=== PATIENT | male | born 1985 | race Caucasian/White ===

== ENCOUNTER 2017-03-03 10:58 | Emergency (ER) | payer MEDICAID ==
[~2017-03-03] VITALS: Ht 190.5 cm; Wt 137.0 kg
[2017-03-03 11:00] VITALS: BP 169/11; PULSE 90; RESP 24; TEMP 98.1; O2SAT 95
[2017-03-03 11:03] VITALS: BP 169/111; PULSE 90; RESP 24; TEMP 98.1; O2SAT 95
[2017-03-03 11:04] VITALS: BP_SYST 166; BP_DIAS 105; BP_DIAS 55; PULSE 91
[2017-03-03] MEDS ORDERED: SODIUM CHLOR 0.9% 1000 ML INJ 1,000 ML IV SCH (11:24)
--- NOTE | 2017-03-03 11:27 | PD ---
HPI Chief Complaint: Chest Pain Time Seen by Provider: 11:19 Travel History International Travel<30 days: No Contact w/Intl Traveler<30days: No Traveled to known affect area: No History of Present Illness HPI This is a 31-year-old male who presents to the emergency department with chest discomfort that started yesterday, in the center of his chest, nonradiating, associated with some shortness of breath, palpitations, diaphoresis and nausea. He does say his pain is worse when he exerts himself and improved with rest. He says he gets sweaty with the pain. He also reports that for the past several weeks he's been vomiting after he eats. He does drink 2-3 alcoholic beverages every day. He smokes cigarettes. His mom of a heart attack at 57. He does have a history of hypertension but denies hyperlipidemia or diabetes. PFS Past Medical History Narrative Medical htn Cardiovascular Problems: Yes (htn) Social History Alcohol Use: Yes (2-3 drinks daily) Tobacco Use: No Allergies-Medications (Allergen,Severity, Reaction): Coded Allergies: No Known Allergies (Unverified , 03/03/17) Reported Meds & Prescriptions Reported Meds & Active Scripts Active Reported Xanax (Alprazolam) 0.5 Mg Tab 0.5 Mg PO Q8H PRN Lortab (Hydrocodone-Acetaminophen) 10-325 Mg Tab 1 Tab PO DAILY PRN Review of Systems Except as stated in HPI: all other systems reviewed are Neg Physical Exam Narrative GENERAL:Well appearing, no acute distress SKIN: Focused skin assessment warm and dry. HEAD: Atraumatic. Normocephalic. EYES: Pupils equal and round. No injection or drainage. ENT: Moist mucous membranes NECK: Trachea midline. CARDIOVASCULAR: Regular rate and rhythm. No murmur appreciated. RESPIRATORY: Clear to auscultation. Breath sounds equal bilaterally. GASTROINTESTINAL: Abdomen soft, tender to palpation in the epigastrium and left upper quadrant with no rebound or guarding. MUSCULOSKELETAL: No obvious deformities. NEUROLOGICAL: Awake and alert. No obvious cranial nerve deficits. Moving all extremities. PSYCHIATRIC: Appropriate mood and affect; insight and judgment normal. Data Data Last Documented VS Vital Signs Date Time Temp Pulse Resp B/P Pulse Ox O2 Delivery O2 Flow Rate FiO2 03/03/17 13:05 73 17 148/91 97 03/03/17 11:32 Room Air 4/18/17 11:03 98.1 Orders Electrocardiogram (03/03/17 11:10) Complete Blood Count With Diff (03/03/17 11:24) Comprehensive Metabolic Panel (03/03/17 11:24) Lipase (03/03/17 11:24) Urinalysis - C+S If Indicated (03/03/17 11:24) Iv Access Insert/Monitor (03/03/17 11:24) Ecg Monitoring (03/03/17 11:24) Oximetry (03/03/17 11:24) Sodium Chlor 0.9% 1000 Ml Inj (Ns 1000 M (03/03/17 11:24) Sodium Chloride 0.9% Flush (Ns Flush) (03/03/17 11:30) Al-Mag Hy-Si 40-40-4 Mg/Ml Liq (Mag-Al P (03/03/17 11:30) Lidocaine 2% Viscous (Xylocaine 2% Visco (03/03/17 11:30) Troponin I (03/03/17 11:24) Chest, Single Ap (03/03/17 ) Us Abdomen Gallbladder (03/03/17 ) Ed Poc Ultrasound (03/03/17 ) Troponin I (03/03/17 15:30) Labs Laboratory Tests Test 03/03/17 03/03/17 11:45 12:25 White Blood Count 15.3 TH/MM3 Red Blood Count 4.24 MIL/MM3 Hemoglobin 14.3 GM/DL Hematocrit 41.0 % Mean Corpuscular Volume 96.6 FL Mean Corpuscular Hemoglobin 33.7 PG Mean Corpuscular Hemoglobin 34.8 % Concent Red Cell Distribution Width 14.5 % Platelet Count 334 TH/MM3 Mean Platelet Volume 7.3 FL Neutrophils (%) (Auto) 67.8 % Lymphocytes (%) (Auto) 19.8 % Monocytes (%) (Auto) 10.6 % Eosinophils (%) (Auto) 1.3 % Basophils (%) (Auto) 0.5 % Neutrophils # (Auto) 10.4 TH/MM3 Lymphocytes # (Auto) 3.0 TH/MM3 Monocytes # (Auto) 1.6 TH/MM3 Eosinophils # (Auto) 0.2 TH/MM3 Basophils # (Auto) 0.1 TH/MM3 CBC Comment DIFF FINAL Differential Comment Sodium Level 140 MEQ/L Potassium Level 4.2 MEQ/L Chloride Level 105 MEQ/L Carbon Dioxide Level 26.5 MEQ/L Anion Gap 9 MEQ/L Blood Urea Nitrogen 5 MG/DL Creatinine 0.99 MG/DL Estimat Glomerular Filtration 88 ML/MIN Rate Random Glucose 86 MG/DL Calcium Level 9.2 MG/DL Total Bilirubin 0.8 MG/DL Aspartate Amino Transf 95 U/L (AST/SGOT) Alanine Aminotransferase 82 U/L (ALT/SGPT) Alkaline Phosphatase 101 U/L Troponin I LESS THAN 0.02 NG/ML Total Protein 7.6 GM/DL Albumin 3.5 GM/DL Lipase 120 U/L Urine Color YELLOW Urine Turbidity CLEAR Urine pH 6.5 Urine Specific [place] 1.013 Urine Protein NEG mg/dL Urine Glucose (UA) NEG mg/dL Urine Ketones NEG mg/dL Urine Occult Blood NEG Urine Nitrite NEG Urine Bilirubin NEG Urine Urobilinogen LESS THAN 2.0 MG/DL Urine Leukocyte Esterase NEG Urine RBC LESS THAN 1 /hpf Urine WBC LESS THAN 1 /hpf Urine Mucus FEW /lpf Microscopic Urinalysis Comment CULT NOT INDICATED MDM Medical Decision Making Medical Screen Exam Complete: Yes Emergency Medical Condition: Yes Interpretation(s) Afebrile, no tachycardia, hypertensive Leukocytosis Mild transaminitis Troponin is normal Lipase is normal Urinalysis: No infection Right upper quadrant ultrasound: Distended gallbladder with no stones, per cholecystic fluid or thickening Differential Diagnosis GERD, acute coronary syndrome, pancreatitis, gastritis, cholecystitis, cholelithiasis Narrative Course This is a 31-year-old male who presents to the emergency department reporting chest pain. On exam he is tender in the epigastrium. He was placed on a monitor and an IV was established. He was afebrile with no tachycardia. He did have a leukocytosis. Labs demonstrate mild transaminitis which I suspect is secondary to daily alcohol use. A right upper quadrant ultrasound was obtained given his leukocytosis and epigastric pain which was reassuring. I suspect his pain is related to alcoholic gastritis. He does have some risk factors for acute coronary syndrome. He has some family history, hypertension and smoking history. His EKG was reassuring. I did discuss with him that I thought his likelihood of having acute coronary syndrome was very low. He would prefer to follow up with his primary care physician and stay in the hospital for a stress test which I think is reasonable. Procedures Procedure Narrative [id number] ultrasound: Gallbladder was visualized and appears to be normal thickness but I had difficulty visualizing the neck of the gallbladder and was unable to visualize the common bile duct so formal ultrasound was obtained. Diagnosis Primary Impression: Gastritis Qualified Code: K29.20 - Acute alcoholic gastritis without hemorrhage Patient Instructions: General Instructions Additional Instructions: If you develop severe or worsening abdominal pain, fever>100.4, persistent vomiting or inability to eat or drink return to the emergency department immediately. Follow up with your primary care physician in 1-2 days for a check-up and possible stress test Med/Other Pt SpecificInfo: Prescription(s) given Scripts Ranitidine (Zantac)150 Mg [id number] Mg PO BID #60 TAB Ref 0 Prov:Luna Agosto MD 03/03/17 Disposition: 01 DISCHARGE HOME Condition: Stable Luna Agosto MD Mar 03, 2017 11:27
[2017-03-03] MEDS ORDERED: ALUMINUM/MAGNESIUM/SIMETH 30 ML CUP PO ONE (11:30)
[2017-03-03] MEDS ORDERED: SODIUM CHLORIDE 0.9% FLUSH 10 ML FLUSH IV FLUSH PRN (11:30)
[2017-03-03] MEDS ORDERED: LIDOCAINE VISCOUS 2% SOLN 15 ML UDC PO ONE (11:30)
[2017-03-03 11:32] VITALS: O2SAT 97
[2017-03-03] MEDS ORDERED: ALPR.5 PO (11:40)
[2017-03-03] MEDS ORDERED: HYDR-3535 PO (11:40)
[2017-03-03 11:57] LABS: AUTOMATED NEUTROPHIL # 10.4 TH/MM3 (1.8-7.7); BASOPHIL # 0.1 TH/MM3 (0-0.2); BASOPHIL % 0.5 % (0.0-2.0); EOSINOPHIL # 0.2 TH/MM3 (0-0.4); EOSINOPHIL % 1.3 % (0.0-4.0); HEMO FLAGS DIFF FINAL; LYMPH % 19.8 % (9.0-44.0); MEAN CELL VOLUME 96.6 FL (80.0-100.0); MEAN CORPUSCULAR HEMOGLOBIN 33.7 PG (27.0-34.0); MEAN CORPUSCULAR HGB CONC 34.8 % (32.0-36.0); MONO % 10.6 % (0.0-8.0); NEUT % 67.8 % (16.0-70.0); PLATELET COUNT 334 TH/MM3 (150-450); RED BLOOD COUNT 4.24 MIL/MM3 (4.50-5.90); RED CELL DISTRIBUTION WIDTH 14.5 % (11.6-17.2); WHITE BLOOD COUNT 15.3 TH/MM3 (4.0-11.0)
[2017-03-03 12:14] LABS: ANION GAP 9 MEQ/L (5-15); AST (GOT) 95 U/L (15-37); BICARBONATE 26.5 MEQ/L (21.0-32.0); BLOOD UREA NITROGEN 5 MG/DL (7-18); CHLORIDE 105 MEQ/L (98-107); GLOMERULAR FILTRATION RATE 88 ML/MIN (>89); POTASSIUM 4.2 MEQ/L (3.5-5.1); SODIUM (NA) 140 MEQ/L (136-145)
[2017-03-03 12:20] LABS: ALKALINE PHOSPHATASE 101 U/L (45-117); ALT (GPT) 82 U/L (12-78); TOTAL BILIRUBIN ADULT 0.8 MG/DL (0.2-1.0)
--- NOTE | 2017-03-03 12:38 | RADRPT ---
EXAM DATE/TIME: 03/03/2017 11:28 [facility] COMPARISON: No previous studies available for comparison. INDICATIONS : Short of breath. MEDICAL HISTORY : None. SURGICAL HISTORY : None. ENCOUNTER: Initial ACUITY: 1 day PAIN SCORE: 3/10 LOCATION: Bilateral chest FINDINGS: A single view of the chest demonstrates the lungs to be symmetrically aerated without evidence of mas s, infiltrate or effusion. The cardiomediastinal contours are unremarkable. Osseous structures are intact. CONCLUSION: The lungs are clear. Aquiles Cheung MD on March 03, 2017 at 12:36 Board Certified Radiologist. This report was verified electronically.
[2017-03-03 12:54] LABS: BLOOD, URINE NEG (NEG); COMMENT (UR) CULT NOT INDICATED; CULTURE IF INDICATED CULT NOT INDICATED; GLUCOSE,URINE NEG (NEG); KETONE, URINE NEG (NEG); MUCUS URINE FEW /lpf (OCC); NITRITE,URINE NEG (NEG); PH, URINE 6.5 (5.0-8.5); URINE COLOR YELLOW (YELLW/STRAW)
[2017-03-03 13:05] VITALS: BP 148/91; PULSE 73; RESP 17; O2SAT 97
--- NOTE | 2017-03-03 15:25 | RADRPT ---
EXAM DATE/TIME: 03/03/2017 13:43 [facility] COMPARISON: No previous studies available for comparison. INDICATIONS : Right upper quadrant pain. MEDICAL HISTORY : Hypertension. SURGICAL HISTORY : Splenectomy. Tumor removed fron sinus. ENCOUNTER: Initial ACUITY: 2 days PAIN SCORE: 3/10 LOCATION: Right upper quadrant MEASUREMENTS: LIVER: 20.3 cm length COMMON DUCT: 6 mm RIGHT KIDNEY: 14.4 x 7.5 x 6.5 cm FINDINGS: LIVER: The liver is enlarged and demonstrates diffuse fatty infiltration. No focal hepatic mass is noted. No biliary ductal dilatation is noted. There is hepatopetal flow within the portal vein. COMMON DUCT: No intraluminal mass or stone visualized. GALLBLADDER: The gallbladder is distended. Contains no stones, demonstrates no wall thickening or pericholecystic fluid. PANCREAS: There is poor visualization of pancreas due to shadowing bowel gas. RIGHT KIDNEY: No evidence of hydronephrosis, stone, or mass. CONCLUSION: 1. Enlarged fatty liver. 2. Distended gallbladder without wall thickening, pericholecystic fluid, cholelithiasis or sonographi c Gagnon's sign. Parth Aguilera MD on March 03, 2017 at 15:21 Board Certified Radiologist. This report was verified electronically.
[2017-03-03] MEDS ORDERED: ZANT150T2 PO (15:35)
--- NOTE | 2017-03-03 23:57 | EKG ---
Date Performed: 03/03/2017 Time Performed: 11:13:49 PTAGE: 31 years EKG: Sinus rhythm MODERATE VOLTAGE CRITERIA FOR LVH, CONSIDER NORMAL VARIANT BORDERLINE ECG NO PREVIOUS TRACING DOCTOR: Ihsan Kitchen Interpretating Date/Time 03/03/2017 23:57:18
== END 2017-03-03 16:07 | disposition home or self-care (01) ==
LOC: NEPD 10:58
DX: K29.20 Alcoholic gastritis without bleeding (principal); F17.210 Nicotine dependence, cigarettes, uncomplicated
CPT/HCPCS: 71010; 76705; 80053; 81001; 83690; 84484; 85025; 93005; 96360; 99285; J7030

== ENCOUNTER 2017-06-03 14:38 | Inpatient (IN) | payer MEDICAID ==
[~2017-06-03] VITALS: Ht 190.5 cm; Wt 129.5 kg
[~2017-06-03 14:38] MED LIST: ALPR.5 PO; HYDR-3535 PO; ZANT150T2 PO
[2017-06-03 14:42] VITALS: BP 173/103; PULSE 102; RESP 20; TEMP 97.8; O2SAT 98
[2017-06-03] MEDS ORDERED: SODIUM CHLOR 0.9% 1000 ML INJ 1,000 ML IV SCH (15:16)
[2017-06-03] MEDS ORDERED: FAMOTIDINE 20 MG/2 ML VIAL IV PUSH ONE (15:30)
[2017-06-03] MEDS ORDERED: MORPHINE SULFATE 4 MG/ML INJ IV PUSH ONE ×2 (15:30→19:15)
[2017-06-03] MEDS ORDERED: ONDANSETRON HCL 4 MG/2 ML VIAL IVP ONE (15:30)
[2017-06-03] MEDS ORDERED: SODIUM CHLORIDE 0.9% FLUSH 10 ML FLUSH IV FLUSH PRN (15:30)
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
[2017-06-03 15:54] LABS: AUTOMATED NEUTROPHIL # 13.2 TH/MM3 (1.8-7.7); BASOPHIL % 0.3 % (0.0-2.0); EOSINOPHIL # 0.2 TH/MM3 (0-0.4); EOSINOPHIL % 0.9 % (0.0-4.0); HEMATOCRIT 48.5 % (39.0-51.0); HEMO FLAGS DIFF FINAL; LYMPH % 18.2 % (9.0-44.0); LYMPHOCYTE # 3.4 TH/MM3 (1.0-4.8); MEAN CELL VOLUME 100.6 FL (80.0-100.0); MEAN CORPUSCULAR HEMOGLOBIN 35.4 PG (27.0-34.0); MEAN CORPUSCULAR HGB CONC 35.2 % (32.0-36.0); MONO % 10.1 % (0.0-8.0); NEUT % 70.5 % (16.0-70.0); PLATELET COUNT 419 TH/MM3 (150-450); RED BLOOD COUNT 4.82 MIL/MM3 (4.50-5.90); RED CELL DISTRIBUTION WIDTH 13.7 % (11.6-17.2); WHITE BLOOD COUNT 18.8 TH/MM3 (4.0-11.0)
[2017-06-03] MEDS ORDERED: OMEP40CA2 PO (16:26)
[2017-06-03 16:28] LABS: ALKALINE PHOSPHATASE 106 U/L (45-117); ALT (GPT) 65 U/L (12-78); ANION GAP 7 MEQ/L (5-15); AST (GOT) 47 U/L (15-37); BICARBONATE 29.7 MEQ/L (21.0-32.0); BLOOD UREA NITROGEN 11 MG/DL (7-18); CHLORIDE 97 MEQ/L (98-107); GLOMERULAR FILTRATION RATE 88 ML/MIN (>89); POTASSIUM 3.5 MEQ/L (3.5-5.1); SODIUM (NA) 134 MEQ/L (136-145); TOTAL BILIRUBIN ADULT 1.2 MG/DL (0.2-1.0)
[2017-06-03] MEDS ORDERED: IOHEXOL 350 MG/ML 10 ML VIAL (for RAD DIAG) IV ONE (17:30)
[2017-06-03 17:31] VITALS: BP 142/86; PULSE 86; RESP 17; O2SAT 99
--- NOTE | 2017-06-03 17:38 | RADRPT ---
EXAM DATE/TIME: 06/03/2017 17:21 [facility] COMPARISON: No previous studies available for comparison. INDICATIONS : Right upper lower qaudrant pain. Elevated WBC. IV CONTRAST: 95 cc Omnipaque 350 (iohexol) IV ORAL CONTRAST: No oral contrast ingested. RADIATION DOSE: 19.79 CTDIvol (mGy) ; Patient body habitus MEDICAL HISTORY : Cardiovascular disease. Hypertension. SURGICAL HISTORY : Splenectomy. ENCOUNTER: Initial ACUITY: 1 day PAIN SCALE: 7/10 LOCATION: Right upper quadrant lower qaudrant TECHNIQUE: Volumetric scanning of the abdomen and pelvis was performed. Using automated exposure control and ad justment of the mA and/or kV according to patient size, radiation dose was kept as low as reasonably achievable to obtain optimal diagnostic quality images. DICOM format image data is available electro nically for review and comparison. FINDINGS: LOWER LUNGS: Mild atelectasis at the lung bases. LIVER: Diffusely decreased hepatic density without evidence for intrahepatic ductal dilatation or focal mass . Gallbladder is mildly distended but otherwise unremarkable by CT. SPLEEN: Postsurgical features of prior splenectomy. Small amount of enhancing soft tissue in the splenic bed likely reflects splenic remnant/splenule. PANCREAS: There is peripancreatic inflammatory stranding predominantly near the pancreatic head. The pancreas e nhances normally without evidence for ductal dilatation or peripancreatic fluid collections. KIDNEYS: Normal in size and shape. There is no mass, stone or hydronephrosis. ADRENAL GLANDS: Within normal limits. VASCULAR: Abdominal aorta is patent. SMV, portal vein, and SMA are patent. BOWEL/MESENTERY: Appears grossly unremarkable. The inflammatory stranding in the pancreatic region is in continuity wi th the second and third portions of the duodenum. Appendix is visualized and normal in appearance. Addy wel is otherwise unremarkable. ABDOMINAL WALL: There is laxity of the anterior abdominal wall without a definite hernia. RETROPERITONEUM: There is no lymphadenopathy. BLADDER: No wall thickening or mass. REPRODUCTIVE: Within normal limits. INGUINAL: There is no lymphadenopathy or hernia. MUSCULOSKELETAL: No abnormal lytic or blastic bony lesions. CONCLUSION: 1. Findings most consistent with acute pancreatitis without evidence for pancreatic necrosis or perip ancreatic fluid collections. 2. Profound hepatic steatosis. 3. Status post splenectomy. Slava Funk MD on June 03, 2017 at 17:30 Board Certified Radiologist. This report was verified electronically.
[2017-06-03 18:22] LABS: BLOOD, URINE NEG (NEG); COMMENT (UR) CULT NOT INDICATED; CULTURE IF INDICATED CULT NOT INDICATED; GLUCOSE,URINE NEG (NEG); KETONE, URINE NEG (NEG); MUCUS URINE FEW /lpf (OCC); NITRITE,URINE NEG (NEG); PH, URINE 6.5 (5.0-8.5); URINE COLOR YELLOW (YELLW/STRAW)
[2017-06-03 19:09] VITALS: BP 136/82; PULSE 77; RESP 20; O2SAT 98
[2017-06-03] MEDS ORDERED: ONDANSETRON HCL 4 MG/2 ML VIAL IV PUSH ONE (19:15)
[2017-06-03] MEDS ORDERED: ONDANSETRON HCL 4 MG/2 ML VIAL IVP PRN (19:45)
[2017-06-03] MEDS ORDERED: NALOXONE HCL 0.4 MG/ML AMP IV PRN (19:45)
[2017-06-03] MEDS ORDERED: HYDROmorphone HCL PF 1 MG/ML VIAL IV PUSH PRN (19:45)
[2017-06-03] MEDS: SODIUM CHLORIDE 0.9% FLUSH 10 ML FLUSH IV FLUSH SCH (21:00)
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
[2017-06-03] MEDS: PANTOPRAZOLE SODIUM 40 MG VIAL IV PUSH SCH (21:46)
[2017-06-03] MEDS: SODIUM CHLOR 0.9% 1000 ML INJ 1,000 ML IV SCH (21:46)
[2017-06-03] MEDS: CIPROFLOXACIN 400 MG PREMIX 200 ML IV ONE ×2 (21:47→22:43)
[2017-06-03 22:21] VITALS: PULSE 85
--- NOTE | 2017-06-03 22:42 | RADRPT ---
EXAM DATE/TIME: 06/03/2017 22:04 [facility] COMPARISON: No previous studies available for comparison. INDICATIONS : Bilateral leg pain. MEDICAL HISTORY : Hypertension. Gastroesophageal reflux disease. Anxiety. SURGICAL HISTORY : Splenectomy. Tumorl removal from sinuses. ENCOUNTER: Initial ACUITY: >1 year PAIN SCORE: 6/10 LOCATION: Bilateral legs. TECHNIQUE: Venous ultrasound of the left and right leg was performed from the inguinal ligament to the proximal calf. Real-time, color Doppler and spectral tracing, compression and augmentation techniques were us ed. FINDINGS: RIGHT LEG: There is normal compressibility of the deep venous system from the inguinal region to the proximal ca lf. No echogenic clot is seen in the lumen of the common femoral, femoral, popliteal, and posterior tibial veins. There is a normal response of the venous system to proximal and distal augmentation an d respiration. LEFT LEG: There is normal compressibility of the deep venous system from the inguinal region to the proximal ca lf. No echogenic clot is seen in the lumen of the common femoral, femoral, popliteal, and posterior tibial veins. There is a normal response of the venous system to proximal and distal augmentation an d respiration. CONCLUSION: Normal examination. Sebastian Victor MD on June 03, 2017 at 22:40 Board Certified Radiologist. This report was verified electronically.
--- NOTE | 2017-06-03 22:44 | RADRPT ---
EXAM DATE/TIME: 06/03/2017 21:49 [facility] COMPARISON: CT ABDOMEN & PELVIS W CONTRAST, June 03, 2017, 17:21. INDICATIONS : Abdominal pain. MEDICAL HISTORY : Hypertension. Gastroesophageal reflux disease. Anxiety. SURGICAL HISTORY : Splenectomy. Tumor removal from sinuses. ENCOUNTER: Initial ACUITY: > 1 year PAIN SCORE: 6/10 LOCATION: Bilateral upper quadrant MEASUREMENTS: LIVER: 18.0 cm length COMMON DUCT: Non-visualized RIGHT KIDNEY: 10.7 x 5.8 x 5.4 cm LEFT KIDNEY: 11.2 x 6.8 x 6.2 cm AORTA: 2.0cm maximal FINDINGS: LIVER: Increased echotexture without focal lesion or ductal dilatation. COMMON DUCT: No intraluminal mass or stone visualized. GALLBLADDER: Contains no stones, demonstrates no wall thickening or pericholecystic fluid. PANCREAS: The visualized portions are within normal limits. RIGHT KIDNEY: No hydronephrosis, stone or mass. LEFT KIDNEY: No hydronephrosis, stone or mass. SPLEEN: Surgically absent. AORTA: Non aneurysmal. IVC: Within normal limits. CONCLUSION: 1. Hepatomegaly and hepatic steatosis. Sebastian Victor MD on June 03, 2017 at 22:41 Board Certified Radiologist. This report was verified electronically.
[2017-06-03] MEDS ORDERED: metroNIDAZOLE 500 MG INJ 100 ML IV ONE (23:00)
[2017-06-04] VITALS (9 sets, daily range): BP systolic 135–165; BP diastolic 69–96; PULSE 61–103; RESP 16–20; TEMP 97.2–97.8; O2SAT 93–98
[2017-06-04] MEDS: HYDROmorphone HCL PF 1 MG/ML VIAL IV PUSH PRN ×5 (01:50→21:27)
[2017-06-04] MEDS: SODIUM CHLORIDE 0.9% FLUSH 10 ML FLUSH IV FLUSH PRN ×2 (01:51→06:33)
[2017-06-04] MEDS: SODIUM CHLOR 0.9% 1000 ML INJ 1,000 ML IV SCH ×3 (04:00→21:27)
[2017-06-04 07:12] LABS: AUTOMATED NEUTROPHIL # 7.1 TH/MM3 (1.8-7.7); BASOPHIL # 0.1 TH/MM3 (0-0.2); BASOPHIL % 0.6 % (0.0-2.0); EOSINOPHIL # 0.5 TH/MM3 (0-0.4); EOSINOPHIL % 4.2 % (0.0-4.0); HEMATOCRIT 44.6 % (39.0-51.0); HEMO FLAGS DIFF FINAL; LYMPH % 27.5 % (9.0-44.0); LYMPHOCYTE # 3.6 TH/MM3 (1.0-4.8); MEAN CELL VOLUME 103.1 FL (80.0-100.0); MEAN CORPUSCULAR HEMOGLOBIN 35.4 PG (27.0-34.0); MEAN CORPUSCULAR HGB CONC 34.3 % (32.0-36.0); MONO % 13.1 % (0.0-8.0); NEUT % 54.6 % (16.0-70.0); PLATELET COUNT 389 TH/MM3 (150-450); RED BLOOD COUNT 4.33 MIL/MM3 (4.50-5.90); RED CELL DISTRIBUTION WIDTH 13.9 % (11.6-17.2)
[2017-06-04 07:41] LABS: ALKALINE PHOSPHATASE 89 U/L (45-117); ALT (GPT) 47 U/L (12-78); ANION GAP 8 MEQ/L (5-15); AST (GOT) 39 U/L (15-37); BICARBONATE 28.1 MEQ/L (21.0-32.0); BLOOD UREA NITROGEN 11 MG/DL (7-18); CHLORIDE 103 MEQ/L (98-107); GLOMERULAR FILTRATION RATE 96 ML/MIN (>89); POTASSIUM 3.5 MEQ/L (3.5-5.1); SODIUM (NA) 139 MEQ/L (136-145)
--- NOTE | 2017-06-04 09:55 | HHI.PR ---
Subjective Remarks Follow-up for abdominal pain. The patient states his abdominal pain has resolved overnight. He denies any recent vomiting, but he hasn't had much of an appetite for the last 3 days. He hasn't had a bowel movement in 3 days, but feels like that is because he hasn't eaten much. He does state that prior to 3 days ago his stools were a little runny, and he had a scant amount of blood on the toilet paper whenever he wiped. He denies any gross bleeding. He works in the area, but lives in [place]. 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 The patient does smoke. The patient does drink 45 drinks after work daily, and states that if that is the cause of his symptoms now, he would rather not drink. Objective Vitals Vital Signs Date Time Temp Pulse Resp B/P Pulse Ox O2 Delivery O2 Flow Rate FiO2 06/04/17 07:04 16 06/04/17 04:06 97.6 70 17 136/69 93 06/04/17 00:07 97.5 94 18 138/95 96 06/03/17 22:21 85 06/03/17 19:09 77 20 136/82 98 Room Air 06/03/17 17:46 16 06/03/17 17:31 86 17 142/86 99 Room Air 06/03/17 14:42 97.8 102 20 173/103 98 Room Air Result Diagram: 06/04/17 0625 06/04/17 0625 Imaging Last Impressions Abdomen/Pelvis CT 06/03/17 1516 Signed Impressions: Service Date/Time: Saturday, June 03, 2017 17:21 - CONCLUSION: 1. Findings most consistent with acute pancreatitis without evidence for pancreatic necrosis or peripancreatic fluid collections. 2. Profound hepatic steatosis. 3. Status post splenectomy. Slava Funk MD Lower Extremity Ultrasound 06/03/17 0000 Signed Impressions: Service Date/Time: Saturday, June 03, 2017 22:04 - CONCLUSION: Normal examination. Sebastian Victor MD Abdomen Ultrasound 06/03/17 0000 Signed Impressions: Service Date/Time: Saturday, June 03, 2017 21:49 - CONCLUSION: 1. Hepatomegaly and hepatic steatosis. Sebastian Victor MD Objective Remarks GENERAL: Well-developed well-nourished obese. In no acute distress. SKIN: Warm and dry. Well-healed midline abdominal surgical incision. HEENT: Normocephalic. Pupils equal and round. Mucous membranes pink and moist. CARDIOVASCULAR: Regular rate and rhythm. No murmur appreciated. RESPIRATORY: No accessory muscle use. Clear to auscultation. Breath sounds equal bilaterally. GASTROINTESTINAL: Abdomen soft, non-tender, nondistended. Bowel sounds x4. MUSCULOSKELETAL: No obvious deformities. No clubbing or cyanosis. No edema. NEUROLOGICAL: Awake and alert. No focal neurological deficits. Moves upper and lower extremities spontaneously. Normal speech. PSYCHIATRIC: Appropriate mood and affect; insight and judgment normal. A/P Assessment and Plan 32-year-old male with a past medical history of GERD, chronic knee pain, splenectomy, alcohol abuse who presented for abdominal pain Abdominal pain: Seems most consistent with acute alcoholic pancreatitis. Symptoms improving. Reviewed: Lipase 993->631. Abdominal CT showed findings consistent with acute pancreatitis without necrosis or peripancreatic fluid collection; hepatic steatosis; s/p splenectomy. Triglycerides mildly elevated at 163. WBC 13.9, afebrile. -GI consulted -Clear liquids for now pending GI evaluation -IVF -IV Dilaudid as needed for pain -IV Protonix twice a day -Possible hemorrhoidal bleeding, stool for occult blood ordered, follow GI recommendations Alcohol abuse: No signs of withdrawal at this time. Counseled on cessation especially with pancreatitis as above. CIWA protocol. Thiamine, Folate, Multivitamins. Tobacco abuse: Counseled on cessation. DVT prophylaxis: Lower extremity ultrasound negative for DVT. SCDs. No chemical prophylaxis with possible rectal bleeding. Discharge Planning Follow-up GI recommendations. Attending Statement Seen in his bedroom, examined, discussed with MIRLANDE Kenney, he is having the Golytely for Colonoscopy tomorrow morning stable, no complaint at this time. Kenney Connell Jun 04, 2017 09:55 Ej Andrews MD Jun 04, 2017 17:30
[2017-06-04] MEDS: PANTOPRAZOLE SODIUM 40 MG VIAL IV PUSH SCH ×2 (10:16→21:26)
[2017-06-04] MEDS: SODIUM CHLORIDE 0.9% FLUSH 10 ML FLUSH IV FLUSH SCH ×2 (10:17→21:27)
--- NOTE | 2017-06-04 12:41 | PD.CONS ---
HPI History of Present Illness This is a 32 year old who came to the ER for evaluation of abdominal pain. His pain began suddenly 2 days ago. He describes this as an intense sharp pain in his RUQ and lower abdominal area that radiates around to his back. This is aggravated by any po intake. He denies any nausea or vomiting or fevers or chills. He does have a history of GERD and takes an over the counter antireflux medicine at home, that usually works for him. He does report a decreased appetite for the past 3 months with a weight loss of 6-8 lbs over the last 2 months. He reports that he has had diarrhea for the past 6 months with 4 -5 liquid loose bowel movements. At times he states that he has dark blood or red blood mixed in the stool. He had a colonoscopy in his 20's and was found to have a polyp. His father is alive, but was diagnosed with colon cancer at age 52. He resides in [place] and states that his PCP was in the process of getting him referred to GI, but has not been referred yet. Abdomen/Pelvis CT (06/03/17)-----> 1. Findings most consistent with acute pancreatitis without evidence for pancreatic necrosis or peripancreatic fluid collections. 2. Profound hepatic steatosis. 3. Status post splenectomy. Abdomen Ultrasound (06/03)----> 1. Hepatomegaly and hepatic steatosis. He denies any history of gallbladder problems or prior history of pancreatitis. He does drink 4-5 alcoholic drinks per day. 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 (Radha Jessica MARIS) Review of Systems Constitutional: COMPLAINS OF: Fatigue, Weight loss, Change in appetite, DENIES : Fever, Chills Respiratory: DENIES: Cough Cardiovascular: DENIES: Chest pain Gastrointestinal: COMPLAINS OF: Abdominal pain, Black stools, Bloody stools, Diarrhea, Nausea, Vomiting, Heartburn, DENIES: Hematemesis Musculoskeletal: COMPLAINS OF: Back pain Integumentary: DENIES: Abnormal pigmentation Hematologic/lymphatic: DENIES: Bruising Neurologic: DENIES: Headache Psychiatric: DENIES: Confusion (Rdaha Jessicaelham POLLOCK) GI Exam Vitals I&O Vital Signs Date Time Temp Pulse Resp B/P Pulse Ox O2 Delivery O2 Flow Rate FiO2 06/04/17 12:00 97.7 73 16 135/84 97 06/04/17 08:00 97.8 72 16 165/96 98 06/04/17 07:04 16 06/04/17 04:06 97.6 70 17 136/69 93 06/04/17 00:07 97.5 94 18 138/95 96 06/03/17 22:21 85 06/03/17 19:09 77 20 136/82 98 Room Air 06/03/17 17:46 16 06/03/17 17:31 86 17 142/86 99 Room Air 06/03/17 14:42 97.8 102 20 173/103 98 Room Air Imaging Last Impressions Abdomen/Pelvis CT 06/03/17 1516 Signed Impressions: Service Date/Time: Saturday, June 03, 2017 17:21 - CONCLUSION: 1. Findings most consistent with acute pancreatitis without evidence for pancreatic necrosis or peripancreatic fluid collections. 2. Profound hepatic steatosis. 3. Status post splenectomy. Slava Funk MD Lower Extremity Ultrasound 06/03/17 0000 Signed Impressions: Service Date/Time: Saturday, June 03, 2017 22:04 - CONCLUSION: Normal examination. Sebastian Victor MD Abdomen Ultrasound 06/03/17 0000 Signed Impressions: Service Date/Time: Saturday, June 03, 2017 21:49 - CONCLUSION: 1. Hepatomegaly and hepatic steatosis. Sebastian Victor MD Laboratory Test 06/03/17 06/03/17 06/03/17 06/04/17 15:25 15:26 17:35 06:25 White Blood Count 18.8 TH/MM3 13.0 TH/MM3 Red Blood Count 4.82 MIL/MM3 4.33 MIL/MM3 Hemoglobin 17.1 GM/DL 15.3 GM/DL Hematocrit 48.5 % 44.6 % Mean Corpuscular Volume 100.6 FL 103.1 FL Mean Corpuscular Hemoglobin 35.4 PG 35.4 PG Mean Corpuscular Hemoglobin 35.2 % 34.3 % Concent Red Cell Distribution Width 13.7 % 13.9 % Platelet Count 419 TH/MM3 389 TH/MM3 Mean Platelet Volume 7.9 FL 7.6 FL Neutrophils (%) (Auto) 70.5 % 54.6 % Lymphocytes (%) (Auto) 18.2 % 27.5 % Monocytes (%) (Auto) 10.1 % 13.1 % Eosinophils (%) (Auto) 0.9 % 4.2 % Basophils (%) (Auto) 0.3 % 0.6 % Neutrophils # (Auto) 13.2 TH/MM3 7.1 TH/MM3 Lymphocytes # (Auto) 3.4 TH/MM3 3.6 TH/MM3 Monocytes # (Auto) 1.9 TH/MM3 1.7 TH/MM3 Eosinophils # (Auto) 0.2 TH/MM3 0.5 TH/MM3 Basophils # (Auto) 0.0 TH/MM3 0.1 TH/MM3 CBC Comment DIFF FINAL DIFF FINAL Differential Comment Sodium Level 134 MEQ/L 139 MEQ/L Potassium Level 3.5 MEQ/L 3.5 MEQ/L Chloride Level 97 MEQ/L 103 MEQ/L Carbon Dioxide Level 29.7 MEQ/L 28.1 MEQ/L Anion Gap 7 MEQ/L 8 MEQ/L Blood Urea Nitrogen 11 MG/DL 11 MG/DL Creatinine 0.98 MG/DL 0.91 MG/DL Estimat Glomerular Filtration 88 ML/MIN 96 ML/MIN Rate Random Glucose 104 MG/DL 85 MG/DL Calcium Level 9.5 MG/DL 8.8 MG/DL Total Bilirubin 1.2 MG/DL 1.0 MG/DL Aspartate Amino Transf 47 U/L 39 U/L (AST/SGOT) Alanine Aminotransferase 65 U/L 47 U/L (ALT/SGPT) Alkaline Phosphatase 106 U/L 89 U/L Total Protein 8.0 GM/DL 6.6 GM/DL Albumin 3.6 GM/DL 2.8 GM/DL Lipase 993 U/L 631 U/L Lactic Acid Level 0.9 mmol/L Urine Color YELLOW Urine Turbidity CLEAR Urine pH 6.5 Urine Specific [place] 1.050 Urine Protein TRACE mg/dL Urine Glucose (UA) NEG mg/dL Urine Ketones NEG mg/dL Urine Occult Blood NEG Urine Nitrite NEG Urine Bilirubin NEG Urine Urobilinogen 2.0 MG/DL Urine Leukocyte Esterase NEG Urine RBC 4 /hpf Urine WBC 1 /hpf Urine Mucus FEW /lpf Microscopic Urinalysis Comment CULT NOT INDICATED Triglycerides Level 163 MG/DL Physical Examination HEENT: Normocephalic; atraumatic; no jaundice. CHEST: CTA CARDIAC: RRR. ABDOMEN: Soft, nondistended, RUQ tenderness, mild epigastric tenderness; no hepatosplenomegaly; bowel sounds are present in all four quadrants. EXTREMITIES: No clubbing, cyanosis, or edema. SKIN: Normal; no rash; no jaundice. LINER INSERTER: No focal deficits; alert and oriented times three. (Radha Jessica) Assessment and Plan Plan ASSESSMENT: - Acute pancreatitis, mild. He does drink 4-5 alcoholic drinks per day. Abdomen/Pelvis CT (06/03/17)-----> 1. Findings most consistent with acute pancreatitis without evidence for pancreatic necrosis or peripancreatic fluid collections. 2. Profound hepatic steatosis. 3. Status post splenectomy. Abdomen Ultrasound (06/03/17)----> 1. Hepatomegaly and hepatic steatosis. He denies any history of gallbladder problems or prior history of pancreatitis. No prior hx of GB disease or pancreatitis, does drink 4-5 etoh drinks per day. IVF. PPI. 993---> 631. - Leukocytosis. WBC 18.8---> 13.0 - Elevation of LFTs. Improved. T. Bili 1.0, AST 39, ALT 47, Alk Phosph 89 - GIB with melena/hematochezia. Pt reports intermittent dark/red blood mixed in stool over past 6 months. HH stable. - Diarrhea. 6 month hx of 4-5 liquid loose bowel movements. Last colonoscopy in 20's, had polyp removed. - FHx Colon Cancer. Father diagnosed with colon cancer at 52. PLAN: - Plan for egd/colonoscopy - Obtain consents - Clear liquids - NPO after MN - Golytely - PPI - IVF - CBC, CMP, Lipase in am - Stool studies - Supportive care - Further recommendations to follow based on results of above. - Pt seen and examined by Dr. Giles and myself and this note is written on her behalf (Radha Jessica) Physician Comments seen, examined agree with above his father was in the room, stated he had prostate cancer not colon cancer also patient states he had egd/colon in the past, he thinks he may have had a polyp (Rain Giles MD) Radha Jessica Jun 04, 2017 12:41 Rain Giles MD Jun 04, 2017 19:20
[2017-06-04] MEDS ORDERED: PEG (High)/E-LYTE SOLN 4000 ML BTL PO ONE (16:00)
[2017-06-04] MEDS ORDERED: LORazepam 1 MG TAB PO PRN (16:30)
[2017-06-04] MEDS ORDERED: LORazepam 2 MG/ML VIAL IV PUSH PRN ×2 (16:30)
[2017-06-04] MEDS ORDERED: FLUMAZENIL 0.5 MG/5 ML VIAL IV PUSH PRN (16:30)
[2017-06-04] MEDS ORDERED: LORazepam 2 MG TAB PO PRN (16:30)
[2017-06-05] VITALS (10 sets, daily range): BP systolic 131–158; BP diastolic 81–92; PULSE 18–92; RESP 18–54; TEMP 96.1–97.2; O2SAT 94–98
[2017-06-05] MEDS: HYDROmorphone HCL PF 1 MG/ML VIAL IV PUSH PRN ×6 (02:49→19:50)
[2017-06-05] MEDS: SODIUM CHLOR 0.9% 1000 ML INJ 1,000 ML IV SCH ×2 (03:07→11:53)
[2017-06-05] MEDS ORDERED: LACTATED RINGER'S 1000 ML IV PRN (04:00)
[2017-06-05 05:25] LABS: AUTOMATED NEUTROPHIL # 8.1 TH/MM3 (1.8-7.7); BASOPHIL # 0.1 TH/MM3 (0-0.2); BASOPHIL % 0.6 % (0.0-2.0); EOSINOPHIL # 0.6 TH/MM3 (0-0.4); EOSINOPHIL % 4.6 % (0.0-4.0); HEMATOCRIT 41.2 % (39.0-51.0); HEMO FLAGS DIFF FINAL; LYMPH % 23.9 % (9.0-44.0); LYMPHOCYTE # 3.3 TH/MM3 (1.0-4.8); MEAN CELL VOLUME 102.9 FL (80.0-100.0); MEAN CORPUSCULAR HEMOGLOBIN 34.9 PG (27.0-34.0); MONO % 12.8 % (0.0-8.0); NEUT % 58.1 % (16.0-70.0); PLATELET COUNT 382 TH/MM3 (150-450); RED CELL DISTRIBUTION WIDTH 13.7 % (11.6-17.2)
[2017-06-05 05:44] LABS: ANION GAP 11 MEQ/L (5-15); AST (GOT) 46 U/L (15-37); BICARBONATE 25.4 MEQ/L (21.0-32.0); BLOOD UREA NITROGEN 8 MG/DL (7-18); CHLORIDE 103 MEQ/L (98-107); GLOMERULAR FILTRATION RATE 124 ML/MIN (>89); POTASSIUM 3.2 MEQ/L (3.5-5.1); SODIUM (NA) 139 MEQ/L (136-145)
[2017-06-05 05:45] LABS: ALT (GPT) 48 U/L (12-78)
[2017-06-05 05:47] LABS: ALKALINE PHOSPHATASE 82 U/L (45-117); TOTAL BILIRUBIN ADULT 0.8 MG/DL (0.2-1.0)
[2017-06-05] MEDS: FOLIC ACID 1 MG TAB PO SCH (08:07)
[2017-06-05] MEDS: MULTIVITAMINS/MINERALS THERAPEUTIC TAB PO SCH (08:07)
[2017-06-05] MEDS: THIAMINE HCL 100 MG TAB PO SCH (08:07)
[2017-06-05] MEDS: PANTOPRAZOLE SODIUM 40 MG VIAL IV PUSH SCH ×2 (08:08→19:50)
[2017-06-05] MEDS: SODIUM CHLORIDE 0.9% FLUSH 10 ML FLUSH IV FLUSH SCH ×2 (08:08→19:50)
[2017-06-05 08:47] LABS: C. DIFF EPI 027 PRESUMPTIVE NEGATIVE (NEGATIVE); C. DIFF TOXIN PCR NEGATIVE (NEGATIVE)
--- NOTE | 2017-06-05 11:02 | HHI.PR ---
Subjective Remarks This is a pleasant 32 y/o male who came to ER wtih Abdominal pain, he has GERD, has lost his appetite, Abdomen/Pelvis CT (06/03/17)-----> 1. Findings most consistent with acute pancreatitis without evidence for pancreatic necrosis or peripancreatic fluid collections. 2. Profound hepatic steatosis. 3. Status post splenectomy. Abdomen Ultrasound (06/03/17)----> 1. Hepatomegaly and hepatic steatosis. He drinks alcohol daily. he is followed by GI specialist, with diagnosis of Acute Pancreatitis, his Lipase level is trending down Leukocytosis trending down, plan is for EGD and Colonoscopy today. Seen in his bedroom in the presence of his Father Mr. Hao Urbina and nurse Miss Monteiro, taking a new IV line for IV fluids at this time patient dehydrated will give a Normal saline IV fluids also needs Potassium replacement. Objective Vital Signs Date Time Temp Pulse Resp B/P Pulse Ox O2 Delivery O2 Flow Rate FiO2 06/05/17 08:00 96.1 63 18 137/81 96 06/05/17 07:15 96.1 63 18 137/81 96 06/05/17 04:00 96.3 76 20 158/89 96 06/05/17 00:00 96.5 79 20 158/92 94 06/04/17 22:00 103 06/04/17 20:00 97.2 73 20 159/86 97 06/04/17 16:00 97.7 68 18 143/82 97 06/04/17 12:19 64 06/04/17 12:00 97.7 73 16 135/84 97 I/O 06/04/17 06/04/17 06/04/17 06/05/17 06/05/17 06/05/17 07:00 15:00 23:00 07:00 15:00 23:00 Intake Total 960 ml 480 ml 42 ml Balance 960 ml 480 ml 42 ml Intake Oral 960 ml 480 ml 0 ml IV Total 0 ml 42 ml # Voids 3 3 1 # Bowel Movements 3 Result Diagram: 06/05/17 0355 06/05/17 0355 Imaging Last Impressions Abdomen/Pelvis CT 06/03/17 1516 Signed Impressions: Service Date/Time: Saturday, June 03, 2017 17:21 - CONCLUSION: 1. Findings most consistent with acute pancreatitis without evidence for pancreatic necrosis or peripancreatic fluid collections. 2. Profound hepatic steatosis. 3. Status post splenectomy. Slava Funk MD Lower Extremity Ultrasound 06/03/17 0000 Signed Impressions: Service Date/Time: Saturday, June 03, 2017 22:04 - CONCLUSION: Normal examination. Sebastian Victor MD Abdomen Ultrasound 06/03/17 0000 Signed Impressions: Service Date/Time: Saturday, June 03, 2017 21:49 - CONCLUSION: 1. Hepatomegaly and hepatic steatosis. Sebastian Victor MD Procedures None Other Results Laboratory Tests Test 06/03/17 06/03/17 06/04/17 06/04/17 15:26 17:35 06:25 13:30 Lactic Acid Level 0.9 mmol/L Urine Color YELLOW Urine Turbidity CLEAR Urine pH 6.5 Urine Specific [place] 1.050 Urine Protein TRACE mg/dL Urine Glucose (UA) NEG mg/dL Urine Ketones NEG mg/dL Urine Occult Blood NEG Urine Nitrite NEG Urine Bilirubin NEG Urine Urobilinogen 2.0 MG/DL Urine Leukocyte Esterase NEG Urine RBC 4 /hpf Urine WBC 1 /hpf Urine Mucus FEW /lpf Microscopic Urinalysis Comment CULT NOT INDICATED Triglycerides Level 163 MG/DL Stool C. difficile Toxin (PCR) NEGATIVE Stl C. difficile Toxin PRESUMPTIVE Epiderm 027 NEGATIVE Test 06/05/17 03:55 White Blood Count 14.0 TH/MM3 Red Blood Count 4.00 MIL/MM3 Hemoglobin 14.0 GM/DL Hematocrit 41.2 % Mean Corpuscular Volume 102.9 FL Mean Corpuscular Hemoglobin 34.9 PG Mean Corpuscular Hemoglobin 34.0 % Concent Red Cell Distribution Width 13.7 % Platelet Count 382 TH/MM3 Mean Platelet Volume 8.0 FL Neutrophils (%) (Auto) 58.1 % Lymphocytes (%) (Auto) 23.9 % Monocytes (%) (Auto) 12.8 % Eosinophils (%) (Auto) 4.6 % Basophils (%) (Auto) 0.6 % Neutrophils # (Auto) 8.1 TH/MM3 Lymphocytes # (Auto) 3.3 TH/MM3 Monocytes # (Auto) 1.8 TH/MM3 Eosinophils # (Auto) 0.6 TH/MM3 Basophils # (Auto) 0.1 TH/MM3 CBC Comment DIFF FINAL Differential Comment Sodium Level 139 MEQ/L Potassium Level 3.2 MEQ/L Chloride Level 103 MEQ/L Carbon Dioxide Level 25.4 MEQ/L Anion Gap 11 MEQ/L Blood Urea Nitrogen 8 MG/DL Creatinine 0.73 MG/DL Estimat Glomerular Filtration 124 ML/MIN Rate Random Glucose 86 MG/DL Calcium Level 8.6 MG/DL Total Bilirubin 0.8 MG/DL Aspartate Amino Transf 46 U/L (AST/SGOT) Alanine Aminotransferase 48 U/L (ALT/SGPT) Alkaline Phosphatase 82 U/L Total Protein 6.0 GM/DL Albumin 2.6 GM/DL Lipase 324 U/L Objective Remarks GENERAL: Well-nourished obese. Obese patient. SKIN: Warm and dry. Well-healed midline abdominal surgical incision. HEENT: Normocephalic. Pupils equal and round. Mucous membranes pink and moist. CARDIOVASCULAR: Regular rate and rhythm. No murmur appreciated. RESPIRATORY: No accessory muscle use. Clear to auscultation. Breath sounds equal bilaterally. GASTROINTESTINAL: Abdomen soft, non-tender, nondistended. Bowel sounds x4. MUSCULOSKELETAL: No obvious deformities. No clubbing or cyanosis. No edema. NEUROLOGICAL: Awake and alert. No focal neurological deficits. Moves upper and lower extremities spontaneously. Normal speech. PSYCHIATRIC: Appropriate mood and affect; insight and judgment normal. Medications and IVs Current Medications Medications (Trade) Dose Ordered Sig/Jess Route Start Time Stop Time Status Last Admin (NS 1000 ml Inj) 1,000 ml @ 125 mls/hr Q8H IV 06/03/17 19:42 06/05/17 03:07 (NS Flush) 2 ml UNSCH PRN IV FLUSH 06/03/17 19:45 06/04/17 06:33 (NS Flush) 2 ml BID IV FLUSH 06/03/17 21:00 06/04/17 21:27 (Zofran Inj) 4 mg Q6H PRN IVP 06/03/17 19:45 (Narcan Inj) 0.4 mg UNSCH PRN IV 06/03/17 19:45 (Protonix Inj) 40 mg Q12H IV PUSH 06/03/17 21:15 06/05/17 08:08 (Dilaudid Pf Inj) 1 mg Q4H PRN IV PUSH 06/03/17 23:45 06/05/17 06:54 (Folate) 1 mg DAILY PO 06/05/17 09:00 06/10/17 08:59 06/05/17 08:07 (Vitamin B1) 100 mg DAILY PO 06/05/17 09:00 06/05/17 08:07 (Theragran M Tab) 1 tab DAILY PO 06/05/17 09:00 06/10/17 08:59 06/05/17 08:07 (Romazicon Inj) 0.2 mg Q1M PRN IV PUSH 06/04/17 16:30 (Ativan) 1 mg Q4H PRN PO 06/04/17 16:30 (Ativan) 2 mg Q2H PRN PO 06/04/17 16:30 (Ativan Inj) 2 mg Q1H PRN IV PUSH 06/04/17 16:30 Lorazepam 2 mg 2 mg Q15M PRN IV PUSH 06/04/17 16:30 (Lr 1000 ml Inj) 1,000 ml @ 30 mls/hr Q24H PRN IV 06/05/17 04:00 06/08/17 03:59 A/P Assessment and Plan This is a pleasant 32 y/o male who came to ER wtih Abdominal pain, he has GERD, has lost his appetite, Abdomen/Pelvis CT (06/03/17)-----> 1. Findings most consistent with acute pancreatitis without evidence for pancreatic necrosis or peripancreatic fluid collections. 2. Profound hepatic steatosis. 3. Status post splenectomy. Abdomen Ultrasound (06/03/17)----> 1. Hepatomegaly and hepatic steatosis. He drinks alcohol daily. he is followed by GI specialist, with diagnosis of Acute Pancreatitis, his Lipase level is trending down Leukocytosis trending down, plan is for EGD and Colonoscopy today. Seen in his bedroom in the presence of his Father Mr. Hao Urbina and nurse Miss Monteiro, taking a new IV line for IV fluids at this time patient dehydrated will give a Normal saline IV fluids also needs Potassium replacement. Abdominal pain: Seems most consistent with acute alcoholic pancreatitis. Symptoms improving. Reviewed: Lipase 993->631. Abdominal CT showed findings consistent with acute pancreatitis without necrosis or peripancreatic fluid collection; hepatic steatosis; s/p splenectomy. Triglycerides mildly elevated at 163. WBC 13.9, afebrile. -GI consulted -for EGD and Colonoscopy later today. -IVF -IV Dilaudid as needed for pain -IV Protonix twice a day -Possible hemorrhoidal bleeding, stool for occult blood ordered, follow GI recommendations Alcohol abuse: No signs of withdrawal at this time. Counseled on cessation especially with pancreatitis as above. [facility] protocol. Thiamine, Folate, Multivitamins. Tobacco abuse: Counseled on cessation. Hypokalemia 3.2 giving 40 meq IV. Dehydration giving bolus of NS 1000 ml and continue 100 ml per hour. DVT prophylaxis: Lower extremity ultrasound negative for DVT. SCDs. No chemical prophylaxis with possible rectal bleeding. Discussed with Nurse Thania with patient and his Father Mr. Hao Urbina all questions answered to the best of my abilities. Discharge Planning Once cleared by GI specialist. Ej Andrews MD Jun 05, 2017 11:02
[2017-06-05] MEDS: POTASSIUM CHLOR 20 MEQ PREMIX 100 ML IV SCH ×2 (11:51→15:51)
[2017-06-05] MEDS ORDERED: SODIUM CHLOR 0.9% 1000 ML INJ 1,000 ML IV ONE (12:15)
[2017-06-05] MEDS ORDERED: PROPOFOL 200 MG/20 ML AMP IV ONE (13:57)
--- NOTE | 2017-06-05 14:25 | GIPROC ---
[facility] [address] [facility]. [facility], [address] COLONOSCOPY PROCEDURE REPORT EXAM DATE: 06/05/2017 PATIENT NAME: Leo Urbina MR #: [id number] BIRTHDATE: 1985 ENDOSCOPIST: Rain Giles MD ORDER #: [id number] SHEET MILL SUPERVISOR: Jesus Aiken and Jean Carlos Canales STATUS: inpatient INDICATIONS: The patient is a 32 yr old male here for a colonoscopy due to change in bowel habits PROCEDURE PERFORMED: Colonoscopy with biopsy MEDICATIONS: None and Per Anesthesia. PREP QUALITY: good PREP TYPE:Magnesium Citrate ESTIMATED BLOOD LOSS: None CONSENT: The patient understands the risks and benefits of the procedure and understands that these risks include, but are not limited to: sedation, allergic reaction, infection, perforation and/or bleeding. Alternative means of evaluation and treatment include, among others: physical exam, x-rays, and/or surgical intervention. The patient elects to proceed with this endoscopic procedure. medical equipment was checked for proper function. Hand hygiene and appropriate measures for infection prevention was taken. After the risks, benefits and alternatives of the procedure were thoroughly explained, Informed consent was verified, confirmed and timeout was successfully executed by the treatment team. A digital exam revealed no abnormalities of the rectum The New [id number] (Std Gastro) and [id number] endoscope was introduced through the anus and advanced to the cecum, which was identified by both the appendix and ileocecal valve. The instrument was then slowly withdrawn as the colon was fully examined. COLON FINDINGS: Normal colonoscopy -random biopsy decending. Retroflexed views revealed internal hemorrhoids and Retroflexed views revealed small internal hemorrhoids The scope was then completely withdrawn from the patient and the procedure terminated. PROCEDURE WITHDRAWAL TIME:6minutes ADVERSE EVENTS: There were no complications. IMPRESSIONS: 1. Normal colonoscopy -random biopsy decending 2. Retroflexed views revealed internal hemorrhoids 3. Retroflexed views revealed small internal hemorrhoids 4. Revealed no abnormalities of the rectum RECOMMENDATIONS: 1. Await biopsy results. Biopsy results will not be ready for 7-10 days. If you don't hear from us in two weeks, call our office for results. 2. Probiotics from any [facility] or health food store RECALL: Colonoscopy, pending biopsy results Rain Giles MD eSigned: Rain Giles MD 06/05/2017 2:25 PM cc:
--- NOTE | 2017-06-05 14:28 | GIPROC ---
[facility] [address] [facility]. [facility], [address] EGD PROCEDURE REPORT EXAM DATE: 06/05/2017 PATIENT NAME: Leo Urbina MR #: [id number] BIRTHDATE: 1985 ATTENDING: Rain Giles MD ORDER #: [id number] ORNAMENTAL IRON WORKER: Jesus Aiken and Jean Carlos Canales STATUS: inpatient INDICATIONS: The patient is a 32 yr old male here for an EGD due to abdominal pain PROCEDURE PERFORMED: EGD w/ biopsy MEDICATIONS: None and Per Anesthesia. TOPICAL ANESTHETIC: none CONSENT: The patient understands the risks and benefits of the procedure and understands that these risks include, but are not limited to: sedation, allergic reaction, infection, perforation and/or bleeding. Alternative means of evaluation and treatment include, among others: physical exam, x-rays, and/or surgical intervention. The patient elects to proceed with this endoscopic procedure. medical equipment was checked for proper function. Hand hygiene and appropriate measures for infection prevention was taken. After the risks, benefits and alternatives of the procedure were thoroughly explained, Informed consent was verified, confirmed and timeout was successfully executed by the treatment team. The patient was anesthetized with topical anesthesia and the [id number] (Pedi C) and [id number] endoscope was introduced through the mouth and advanced to the second portion of the duodenum. Retroflexed views revealed a hiatal hernia The gastroscope was then slowly withdrawn and removed. Gastritis antrum-biopsy esophagitis dital esophagus -biopsy. ADVERSE EVENTS: There were no complications. IMPRESSIONS: 1. Gastritis antrum-biopsy esophagitis dital esophagus -biopsy 2. Retroflexed views revealed a hiatal hernia RECOMMENDATIONS: 1. Anti-reflux regimen 2. Continue PPI 3. Avoid NSAIDS PATIENT CONDITION: stable DISPOSITION: Inpatient REPEAT EXAM: EGD pending biopsy results Rain Giles MD eSigned: Rain Giles MD 06/05/2017 2:28 PM cc: PATIENT NAME: Leo Urbina MR#: [id number]
[2017-06-05 20:22] LABS: POTASSIUM 3.6 MEQ/L (3.5-5.1)
[2017-06-05 20:24] LABS: MAGNESIUM 2.1 MG/DL (1.5-2.5)
[2017-06-06] VITALS: BP 151/87; PULSE 70; RESP 20; TEMP 97.6; O2SAT 95
[2017-06-06] MEDS: HYDROmorphone HCL PF 1 MG/ML VIAL IV PUSH PRN ×3 (01:28→09:56)
[2017-06-06 04:00] VITALS: BP 142/90; PULSE 62; RESP 22; TEMP 97; O2SAT 95
[2017-06-06 08:00] VITALS: BP 153/94; PULSE 68; PULSE 88; RESP 18; TEMP 97.1; O2SAT 91
[2017-06-06] MEDS: FOLIC ACID 1 MG TAB PO SCH (08:08)
[2017-06-06] MEDS: MULTIVITAMINS/MINERALS THERAPEUTIC TAB PO SCH (08:08)
[2017-06-06] MEDS: THIAMINE HCL 100 MG TAB PO SCH (08:08)
[2017-06-06] MEDS: PANTOPRAZOLE SODIUM 40 MG VIAL IV PUSH SCH (08:09)
[2017-06-06] MEDS: SODIUM CHLORIDE 0.9% FLUSH 10 ML FLUSH IV FLUSH SCH (08:09)
--- NOTE | 2017-06-06 10:02 | HHI.PR ---
Subjective Remarks This is a pleasant 32 y/o male who came to ER wtih Abdominal pain, he has GERD, has lost his appetite, Abdomen/Pelvis CT (06/03/17)-----> 1. Findings most consistent with acute pancreatitis without evidence for pancreatic necrosis or peripancreatic fluid collections. 2. Profound hepatic steatosis. 3. Status post splenectomy. Abdomen Ultrasound (06/03/17)----> 1. Hepatomegaly and hepatic steatosis. He drinks alcohol daily. he is followed by GI specialist, with diagnosis of Acute Pancreatitis, his Lipase level is trending down Leukocytosis trending down, plan is for EGD and Colonoscopy today. Seen in his bedroom in the presence of his Father Mr. Hao Urbina and nurse Miss Monteiro, taking a new IV line for IV fluids at this time patient dehydrated will give a Normal saline IV fluids also needs Potassium replacement. 06/06: Stable in his bedroom then walking in the aisle when encourage ambulation , ready for discharge from Medicine standpoint, Pain medicine to by mouth and continue to follow as outpatient by GI specialist asked Miss Newman to call GI specialist and get official Discharge as per GI specialist. Objective Vital Signs Date Time Temp Pulse Resp B/P Pulse Ox O2 Delivery O2 Flow Rate FiO2 06/06/17 08:00 97.1 68 18 153/94 91 06/06/17 08:00 88 06/06/17 04:00 97.0 62 22 142/90 95 06/06/17 00:00 97.6 70 20 151/87 95 06/05/17 22:00 92 06/05/17 20:00 97.2 80 19 149/86 94 06/05/17 16:00 96.4 62 18 158/92 98 06/05/17 16:00 96.4 60 18 158/92 98 06/05/17 14:42 57 18 155/83 97 06/05/17 14:27 57 18 152/84 97 06/05/17 14:13 97.5 67 18 151/73 95 06/05/17 14:00 96.1 18 54 131/82 97 06/05/17 13:20 96.1 54 18 131/82 97 06/05/17 12:00 96.1 18 54 131/82 97 I/O 06/05/17 06/05/17 06/05/17 06/06/17 06/06/17 7/22/17 07:00 15:00 23:00 07:00 15:00 23:00 Intake Total 42 ml 400 ml 1196 ml 1226 ml Balance 42 ml 400 ml 1196 ml 1226 ml Intake Oral 0 ml 0 ml 240 ml 240 ml IV Total 42 ml 400 ml 956 ml 986 ml # Voids 1 3 1 1 # Bowel Movements 1 Result Diagram: 06/05/17 0355 06/05/17 1918 Imaging Last Impressions Abdomen/Pelvis CT 06/03/17 1516 Signed Impressions: Service Date/Time: Saturday, June 03, 2017 17:21 - CONCLUSION: 1. Findings most consistent with acute pancreatitis without evidence for pancreatic necrosis or peripancreatic fluid collections. 2. Profound hepatic steatosis. 3. Status post splenectomy. Slava Funk MD Lower Extremity Ultrasound 06/03/17 0000 Signed Impressions: Service Date/Time: Saturday, June 03, 2017 22:04 - CONCLUSION: Normal examination. Sebastian Victor MD Abdomen Ultrasound 06/03/17 0000 Signed Impressions: Service Date/Time: Saturday, June 03, 2017 21:49 - CONCLUSION: 1. Hepatomegaly and hepatic steatosis. Sebastian Victor MD Procedures None Other Results Laboratory Tests Test 06/03/17 06/03/17 06/04/17 06/04/17 15:26 17:35 06:25 13:30 Lactic Acid Level 0.9 mmol/L Urine Color YELLOW Urine Turbidity CLEAR Urine pH 6.5 Urine Specific [place] 1.050 Urine Protein TRACE mg/dL Urine Glucose (UA) NEG mg/dL Urine Ketones NEG mg/dL Urine Occult Blood NEG Urine Nitrite NEG Urine Bilirubin NEG Urine Urobilinogen 2.0 MG/DL Urine Leukocyte Esterase NEG Urine RBC 4 /hpf Urine WBC 1 /hpf Urine Mucus FEW /lpf Microscopic Urinalysis Comment CULT NOT INDICATED Triglycerides Level 163 MG/DL Stool C. difficile Toxin (PCR) NEGATIVE Stl C. difficile Toxin PRESUMPTIVE Epiderm 027 NEGATIVE Test 06/05/17 06/05/17 03:55 19:18 White Blood Count 14.0 TH/MM3 Red Blood Count 4.00 MIL/MM3 Hemoglobin 14.0 GM/DL Hematocrit 41.2 % Mean Corpuscular Volume 102.9 FL Mean Corpuscular Hemoglobin 34.9 PG Mean Corpuscular Hemoglobin 34.0 % Concent Red Cell Distribution Width 13.7 % Platelet Count 382 TH/MM3 Mean Platelet Volume 8.0 FL Neutrophils (%) (Auto) 58.1 % Lymphocytes (%) (Auto) 23.9 % Monocytes (%) (Auto) 12.8 % Eosinophils (%) (Auto) 4.6 % Basophils (%) (Auto) 0.6 % Neutrophils # (Auto) 8.1 TH/MM3 Lymphocytes # (Auto) 3.3 TH/MM3 Monocytes # (Auto) 1.8 TH/MM3 Eosinophils # (Auto) 0.6 TH/MM3 Basophils # (Auto) 0.1 TH/MM3 CBC Comment DIFF FINAL Differential Comment Sodium Level 139 MEQ/L Chloride Level 103 MEQ/L Carbon Dioxide Level 25.4 MEQ/L Anion Gap 11 MEQ/L Blood Urea Nitrogen 8 MG/DL Creatinine 0.73 MG/DL Estimat Glomerular Filtration 124 ML/MIN Rate Random Glucose 86 MG/DL Calcium Level 8.6 MG/DL Total Bilirubin 0.8 MG/DL Aspartate Amino Transf 46 U/L (AST/SGOT) Alanine Aminotransferase 48 U/L (ALT/SGPT) Alkaline Phosphatase 82 U/L Total Protein 6.0 GM/DL Albumin 2.6 GM/DL Lipase 324 U/L Potassium Level 3.6 MEQ/L Magnesium Level 2.1 MG/DL Objective Remarks GENERAL: Well-nourished obese. Obese patient. SKIN: Warm and dry. Well-healed midline abdominal surgical incision. HEENT: Normocephalic. Pupils equal and round. Mucous membranes pink and moist. CARDIOVASCULAR: Regular rate and rhythm. No murmur appreciated. RESPIRATORY: No accessory muscle use. Clear to auscultation. Breath sounds equal bilaterally. GASTROINTESTINAL: Abdomen soft, non-tender, nondistended. Bowel sounds x4. MUSCULOSKELETAL: No obvious deformities. No clubbing or cyanosis. No edema. NEUROLOGICAL: Awake and alert. No focal neurological deficits. Moves upper and lower extremities spontaneously. Normal speech. PSYCHIATRIC: Appropriate mood and affect; insight and judgment normal. Medications and IVs Current Medications Medications (Trade) Dose Ordered Sig/Jess Route Start Time Stop Time Status Last Admin (NS 1000 ml Inj) 1,000 ml @ 125 mls/hr Q8H IV 06/03/17 19:42 06/05/17 11:53 (NS Flush) 2 ml UNSCH PRN IV FLUSH 06/03/17 19:45 06/04/17 06:33 (NS Flush) 2 ml BID IV FLUSH 06/03/17 21:00 06/06/17 08:09 (Zofran Inj) 4 mg Q6H PRN IVP 06/03/17 19:45 (Narcan Inj) 0.4 mg UNSCH PRN IV 06/03/17 19:45 (Protonix Inj) 40 mg Q12H IV PUSH 06/03/17 21:15 06/06/17 08:09 (Dilaudid Pf Inj) 1 mg Q4H PRN IV PUSH 06/03/17 23:45 06/06/17 09:56 (Folate) 1 mg DAILY PO 06/05/17 09:00 06/10/17 08:59 06/06/17 08:08 (Vitamin B1) 100 mg DAILY PO 06/05/17 09:00 06/06/17 08:08 (Theragran M Tab) 1 tab DAILY PO 06/05/17 09:00 06/10/17 08:59 06/06/17 08:08 (Romazicon Inj) 0.2 mg Q1M PRN IV PUSH 06/04/17 16:30 (Ativan) 1 mg Q4H PRN PO 06/04/17 16:30 (Ativan) 2 mg Q2H PRN PO 06/04/17 16:30 (Ativan Inj) 2 mg Q1H PRN IV PUSH 06/04/17 16:30 Lorazepam 2 mg 2 mg Q15M PRN IV PUSH 06/04/17 16:30 (Lr 1000 ml Inj) 1,000 ml @ 30 mls/hr Q24H PRN IV 06/05/17 04:00 06/08/17 03:59 A/P Assessment and Plan This is a pleasant 32 y/o male who came to ER wtih Abdominal pain, he has GERD, has lost his appetite, Abdomen/Pelvis CT (06/03/17)-----> 1. Findings most consistent with acute pancreatitis without evidence for pancreatic necrosis or peripancreatic fluid collections. 2. Profound hepatic steatosis. 3. Status post splenectomy. Abdomen Ultrasound (06/03/17)----> 1. Hepatomegaly and hepatic steatosis. He drinks alcohol daily. he is followed by GI specialist, with diagnosis of Acute Pancreatitis, his Lipase level is trending down Leukocytosis trending down, plan is for EGD and Colonoscopy today. Seen in his bedroom in the presence of his Father Mr. Hao Urbina and nurse Miss Monteiro, taking a new IV line for IV fluids at this time patient dehydrated will give a Normal saline IV fluids also needs Potassium replacement. Abdominal pain: Seems most consistent with acute alcoholic pancreatitis. Symptoms improving. Reviewed: Lipase continue trending down. . Abdominal CT showed findings consistent with acute pancreatitis without necrosis or peripancreatic fluid collection; hepatic steatosis; s/p splenectomy. Triglycerides mildly elevated at 163. WBC 13.9, afebrile. -GI following status post EGD and Colonoscopy biopsies taken and will follow GI specialist Doctor Tisha as outpatient. Alcohol abuse: No signs of withdrawal at this time. Counseled on cessation especially with pancreatitis as above. [facility] protocol. Thiamine, Folate, Multivitamins. Tobacco abuse: Counseled on cessation. Hypokalemia replaced. Dehydration giving bolus of NS 1000 ml and continue 100 ml per hour. DVT prophylaxis: Lower extremity ultrasound negative for DVT. SCDs. No chemical prophylaxis with possible rectal bleeding. Discussed with Nurse Miss Newman. all questions answered to the best of my abilities. Discharge Planning Discharge Home was cleared by Doctor Tisha at this time. Ej Andrews MD Jun 06, 2017 10:02
[2017-06-06] MEDS ORDERED: PROT40TA PO (11:01)
[2017-06-06] MEDS ORDERED: FOLI1TAB6 PO (11:01)
[2017-06-06] MEDS ORDERED: HYDR-3534 PO (11:01)
[2017-06-06] MEDS ORDERED: GNP100TA3 PO (11:01)
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
== END 2017-06-06 11:51 | disposition home or self-care (01) | DRG 440 ==
LOC: NEPE 14:38 → NEDA 19:16 → OBSVTOIN 19:16 → NEPHCDU 21:31 → N07B 06-04 18:44
PROVIDERS: ADMIT Internal Medicine; ATTEND Internal Medicine
PROC: 0DBM8ZX Excision of Descending Colon, Via Natural or Artificial Opening Endoscopic, Diagnostic (ICD-10-PCS; 2017-06-05)
PROC: 0DB38ZX Excision of Lower Esophagus, Via Natural or Artificial Opening Endoscopic, Diagnostic (ICD-10-PCS; principal; 2017-06-05 13:47)
PROC: 0DB68ZX Excision of Stomach, Via Natural or Artificial Opening Endoscopic, Diagnostic (ICD-10-PCS; 2017-06-05 13:47)
DX: K85.20 Alcohol induced acute pancreatitis without necrosis or infection (principal); K76.0 Fatty (change of) liver, not elsewhere classified; E66.9 Obesity, unspecified; F10.10 Alcohol abuse, uncomplicated; K29.70 Gastritis, unspecified, without bleeding; R19.7 Diarrhea, unspecified; Z90.81 Acquired absence of spleen; Z68.35 Body mass index [BMI] 35.0-35.9, adult; K21.9 Gastro-esophageal reflux disease without esophagitis; E86.0 Dehydration; E87.6 Hypokalemia; F17.210 Nicotine dependence, cigarettes, uncomplicated; K44.9 Diaphragmatic hernia without obstruction or gangrene; K20.9 Esophagitis, unspecified; K64.8 Other hemorrhoids; G89.29 Other chronic pain; M25.569 Pain in unspecified knee; Z80.42 Family history of malignant neoplasm of prostate; Z86.010 Personal history of colon polyps
CPT/HCPCS: 74177; 76700; 76937; 80053; 81001; 82272; 83605; 83690; 83735; 84132; 84478; 85025; 87205; 87328; 87329; 87493; 87506; 88305; 88312; 93970; 96361; 96374; 96375; C9113; J0744; J1170; J2270; J2405; J3480; J7030; Q9967